=== PATIENT | female | born 1965 | race Two or more races ===

== ENCOUNTER 2023-02-09 12:33 | Inpatient (IN) | payer OTHER ==
[~2023-02-09] VITALS: Ht 154.9 cm; Wt 58.5 kg
[2023-02-09] MEDS ORDERED: SYNTHROID100 MCG PO (13:27)
[2023-02-09] MEDS ORDERED: NASAL MIST126 ML (13:27)
[2023-02-09] MEDS ORDERED: ZESTRIL2.5 MG PO (13:27)
== END 2023-02-18 13:31 | disposition home or self-care (01) | DRG 391 ==
LOC: ER 12:33 → SEC-K 18:43 → MEDJ 02-10 20:09
PROVIDERS: Internal Medicine; Nurse Practitioner Family; ADMIT Internal Medicine; ATTEND Internal Medicine
PROC: 0W9J30Z Drainage of Pelvic Cavity with Drainage Device, Percutaneous Approach (ICD-10-PCS; principal; 2023-02-10)
PROC: 02HV33Z Insertion of Infusion Device into Superior Vena Cava, Percutaneous Approach (ICD-10-PCS; 2023-02-12)
PROC: BW21YZZ Computerized Tomography (CT Scan) of Abdomen and Pelvis using Other Contrast (ICD-10-PCS; 2023-02-14)
DX: K57.20 Diverticulitis of large intestine with perforation and abscess without bleeding (principal); U07.1 COVID-19; I10 Essential (primary) hypertension; E03.9 Hypothyroidism, unspecified

== ENCOUNTER 2023-06-14 11:15 | Inpatient (IN) | payer OTHER ==
[~2023-06-14] VITALS: Ht 154.9 cm; Wt 57.2 kg
[~2023-06-14 11:15] MED LIST: NASAL MIST126 ML; SYNTHROID100 MCG PO; ZESTRIL2.5 MG PO
[2023-06-14] MEDS ORDERED: LIPITOR20 MG PO (11:17)
[2023-06-14] MEDS ORDERED: EVISTA60 MG PO (11:18)
[2023-06-14] MEDS ORDERED: INDERAL XL80 MG PO (11:18)
[2023-06-17] MEDS ORDERED: ATORVASTATIN CA10 MG PO (08:01)
[2023-06-17] MEDS ORDERED: PROPRANOLOL HCL10 MG PO (08:02)
[2023-06-18 08:29] LABS: HEMATOCRIT 27.2 % (36.0-45.00); MEAN CELL VOLUME 73.7 fL (80.00-100.00); MEAN CORPUSCULAR HGB CONC 33.9 g/dl (32.0-36.0); PLATELET COUNT 404 K/uL (150-450); RED BLOOD COUNT 3.69 M/uL (4.00-6.00)
[2023-06-18 08:43] LABS: MEAN CORPUSCULAR HEMOGLOBIN 24.9 pg (27.00-32.0)
[2023-06-18 08:47] LABS: HEMOGLOBIN 9.2 g/dL (12.0-15.00)
[2023-06-18 08:51] LABS: ALBUMIN 2.5 gm/dL (3.4-5.0); CALCIUM 8.6 mg/dL (8.5-10.1); CREATININE SERUM 0.42 mg/dL (0.55-1.02); GFR 156.07; MAGNESIUM 1.8 mg/dL (1.8-2.4); PHOSPHOROUS 3.1 mg/dL (2.5-4.9); POTASSIUM 3.09 mEq/L (3.5-5.1)
[2023-06-18 09:58] LABS: RED CELL DISTRIBUTION WIDTH 18.6 % (11.5-14.5)
[2023-06-18 15:16] LABS: HEMATOCRIT 38.4 % (36.0-45.00); HEMOGLOBIN 13.2 g/dL (12.0-15.00); MEAN CELL VOLUME 86.6 fL (80.00-100.00); MEAN CORPUSCULAR HEMOGLOBIN 29.9 pg (27.00-32.0); MEAN CORPUSCULAR HGB CONC 34.5 g/dl (32.0-36.0); PLATELET COUNT 184 K/uL (150-450); RED BLOOD COUNT 4.43 M/uL (4.00-6.00); RED CELL DISTRIBUTION WIDTH 13.9 % (11.5-14.5)
[2023-06-19 07:45] LABS: HEMATOCRIT 38.6 % (36.0-45.00); HEMOGLOBIN 13.1 g/dL (12.0-15.00); MEAN CELL VOLUME 87.6 fL (80.00-100.00); MEAN CORPUSCULAR HEMOGLOBIN 29.8 pg (27.00-32.0); MEAN CORPUSCULAR HGB CONC 34.1 g/dl (32.0-36.0); PLATELET COUNT 188 K/uL (150-450); RED CELL DISTRIBUTION WIDTH 13.9 % (11.5-14.5)
[2023-06-19 09:32] LABS: CALCIUM 8.6 mg/dL (8.5-10.1); CREATININE SERUM 0.58 mg/dL (0.55-1.02); GFR 107.54; PHOSPHOROUS 2.1 mg/dL (2.5-4.9); POTASSIUM 4.17 mEq/L (3.5-5.1)
[2023-06-21] MEDS ORDERED: HYOSCYAMINE0.125 M1 SL (16:44)
== END 2023-06-21 17:18 | disposition home or self-care (01) | DRG 329 ==
LOC: SURH 06-17 05:25 → O/R 06-17 05:25 → SURG 06-17 08:30 → SURH 06-17 10:43 → SURG 06-17 11:15 → SURH 06-21 17:18
PROVIDERS: Internal Medicine Geriatric Medicine; ADMIT Surgery; ATTEND Surgery
PROC: 0DBP4ZZ Excision of Rectum, Percutaneous Endoscopic Approach (ICD-10-PCS; 2023-06-17)
PROC: 0DJD8ZZ Inspection of Lower Intestinal Tract, Via Natural or Artificial Opening Endoscopic (ICD-10-PCS; 2023-06-17)
PROC: 0DTN4ZZ Resection of Sigmoid Colon, Percutaneous Endoscopic Approach (ICD-10-PCS; principal; 2023-06-17 08:30)
DX: K57.20 Diverticulitis of large intestine with perforation and abscess without bleeding (principal); K65.1 Peritoneal abscess

== ENCOUNTER 2023-07-06 09:54 | Emergency (ER) | payer OTHER ==
[~2023-07-06] VITALS: Ht 154.9 cm; Wt 54.0 kg
[~2023-07-06 09:54] MED LIST changes: +ATORVASTATIN CA10 MG PO; +EVISTA60 MG PO; +HYOSCYAMINE0.125 M1 SL; +INDERAL XL80 MG PO; +LIPITOR20 MG PO; +PROPRANOLOL HCL10 MG PO
[2023-07-06 11:17] LABS: HEMATOCRIT 39.6 % (36.0-45.00); HEMOGLOBIN 13.4 g/dL (12.0-15.00); MEAN CELL VOLUME 87.9 fL (80.00-100.00); MEAN CORPUSCULAR HEMOGLOBIN 29.8 pg (27.00-32.0); MEAN CORPUSCULAR HGB CONC 33.9 g/dl (32.0-36.0); PLATELET COUNT 326 K/uL (150-450); RED BLOOD COUNT 4.51 M/uL (4.00-6.00); RED CELL DISTRIBUTION WIDTH 14.2 % (11.5-14.5)
[2023-07-06 11:54] LABS: ALBUMIN 3.6 gm/dL (3.4-5.0); ALKALINE PHOSPHATASE 81 U/L (50-136); ALT/SGPT 32 U/L (12-78); ANION GAP 6 (10.0-20.0); AST/SGOT 16 U/L (15-37); BILIRUBIN TOTAL 0.35 mg/dL (0.3-1.2); BILIRUBIN,CONJUGATED < 0.10 mg/dL (0.0-0.2); BILIRUBIN,UNCONJUGATED 0.25 mg/dL (0.0-0.6); BLOOD UREA NITROGEN 21 mg/dL (7-18); BUN CREA RATIO 31 (7.0-25.0); CALCIUM 9.4 mg/dL (8.5-10.1); CARBON DIOXIDE 32 mEq/L (21-32); CHLORIDE 107 mmol/L (98-107); CREATININE SERUM 0.68 mg/dL (0.55-1.02); GLUCOSE FASTING 114 mg/dL (65-100); OSMOLALITY SERUM 285 MOSM/KG (275-295); POTASSIUM 4.27 mEq/L (3.5-5.1); SODIUM 141 mmol/L (136-145); TOTAL PROTEIN 7.2 gm/dL (6.4-8.2)
[2023-07-06 13:31] LABS: PH,URINE 7.5 (5.0-8.0); URINE APPEARANCE Clear; URINE BILIRRUBIN Negative (NEGATIVE); URINE BLOOD Negative; URINE COLOR Yellow; URINE GLUCOSE Negative (NEGATIVE); URINE LEUKOCYTE Negative; URINE NITRATE Negative; URINE PROTEIN Negative (NEGATIVE); URINE UROBILINOGEN 0.2 E.U./dl
[2023-07-06 13:39] LABS: URINE BACTERIA 15.1 uL (0.0-1933); URINE EPITHELIAL CELLS 8.9 uL (0.0-38.8); URINE RBC 5.1 uL (0.0-20.8); URINE WBC 3.2 uL (0.0-23.2)
== END 2023-07-06 15:16 | disposition home or self-care (01) ==
LOC: ER 09:54
PROVIDERS: General Practice
DX: R10.32 Left lower quadrant pain (principal); I10 Essential (primary) hypertension; E03.9 Hypothyroidism, unspecified

== ENCOUNTER 2024-08-24 05:44 | Day surgery (SDC) | payer OTHER ==
[2024-08-24] MEDS ORDERED: DIPHENHYDRAMINE HCL 50 MG/ML VIAL 1ML IV ONE (11:30)
[2024-08-24] MEDS ORDERED: MIDAZOLAM HCL 2 MG/2 ML VIAL IV ONE (11:30)
[2024-08-24] MEDS ORDERED: fentaNYL CITRATE 50 MCG/ML AMPUL IV ONE (11:30)
[2024-08-24] MEDS ORDERED: OMEPRAZOLE20 M1 PO (11:37)
== END 2024-08-24 12:50 | disposition home or self-care (01) ==
LOC: AMB-ENDOS 05:44
PROVIDERS: ATTEND Surgery
DX: R19.4 Change in bowel habit (principal); K57.30 Diverticulosis of large intestine without perforation or abscess without bleeding; R14.0 Abdominal distension (gaseous)